=== PATIENT | female | born 1980 | race Hispanic/Latino ===

== ENCOUNTER 2018-10-12 21:55 | Observation (INO) | payer SELFPAY ==
[2018-10-12] MEDS ORDERED: Lidocaine 1% w/Epinephrine 1:100K 20 ML VIAL ONE (22:14)
[2018-10-13 01:11] VITALS: BMI 41.8
--- NOTE | 2018-10-13 02:27 | CON ---
DATE OF CONSULTATION: 10/12/2018 REASON FOR CONSULTATION: The patient was seen for evaluation of thyroid mass, transferred from [facility]. BRIEF HISTORY: A 38-year-old female with no previous medical history. She was noted to have fullness and mass in her left neck for over 2 years. She reports no swallowing problems. No voice complaints or changes. She reports having itchy, scratchy throat and some sore throat over the past 2 to 3 days. Yesterday, she felt it was hard to swallow and had some low-grade fevers. She presented to the emergency room. They did a noncontrast CT scan, which showed a large left-sided thyroid mass with substernal extension. She has never had any previous history of thyroid ultrasound. She does report having thyroid workup done in this past year with a doctor, she was unsure of the name. They only performed thyroid function tests, which were normal, but had not performed any radiologic imaging. PAST MEDICAL HISTORY: None. PAST SURGICAL HISTORY: None. SOCIAL HISTORY: Lives in [facility]. ALLERGIES: NO KNOWN DRUG ALLERGIES. MEDICATIONS: None. PHYSICAL EXAMINATION: GENERAL: The patient is resting comfortably in bed. Voice is clear. NECK: Shows fullness in the left side. There is an obvious large thyroid mass present. The laryngeal landmarks were slightly displaced to the right of midline. Oral cavity, pharynx, no trismus. Mucosa is intact. EARS: TMs intact. Middle ear is well aerated. Nasal cavity is clear. PROCEDURE: Flexible laryngoscopy was performed after topical anesthesia and decongestant placed in the nasal cavity. Nasal cavity and nasopharynx are clear. Bilateral true vocal cords are fully mobile. Pyriform sinuses, vallecula, epiglottis are all within normal limits. There is no evidence of edema. There is very mild displacement of the larynx that can hardly be appreciated to the flexible exam. CT scan of the neck without contrast shows a large left-sided thyroid goiter with substernal extension. There is some associated lymphadenopathy on this left side. This is a noncontrast study and does not show areas of abscess formation. ASSESSMENT: Left thyroid goiter with substernal extension. It is not causing any immediate airway or esophageal compression. The patient likely has a viral URI, which will certainly exacerbate the symptoms given some mild displacement of her larynx and pharynx from the large thyroid mass that she has had for over 2 years. I recommend she be admitted overnight to Medicine Service for IV antibiotics. She can be discharged tomorrow and follow up with us as an outpatient this next week, so we can discuss thyroidectomy with the patient. Job ID: [id number]
[2018-10-13] MEDS ORDERED: Ondansetron PF 4 MG/2 ML Vial SLOW IVP PRN (03:46)
[2018-10-13] MEDS ORDERED: Ondansetron PF 4 MG/2 ML Vial SLOW IVP SCH (04:00)
[2018-10-13] MEDS: Cepastat Lozenges 1 LOZ PO PRN ×5 (07:38→18:00)
[2018-10-13] MEDS: Chloraseptic Spray 180 ml Bottle PO PRN ×4 (07:39→17:59)
[2018-10-13] MEDS ORDERED: cefTRIAXone\\ROCEPHIN 1 GM in Sodium Chloride 0.9% 100 ML IVPB SCH (09:00)
[2018-10-13] MEDS: Ketorolac Tromethamine 30 MG/ML VIAL IVP SCH ×2 (11:45→18:00)
--- NOTE | 2018-10-13 13:18 | HP ---
CHIEF COMPLAINT: Sore throat and neck pain. HISTORY OF PRESENT ILLNESS: The patient is a 38-year-old female, Chadian only speaking patient, who started having some sore throat and neck pain for the last couple of days. She had some upper respiratory tract infection. She did not have any fever or chills. She denied any chest pain. She came to the emergency room in [place] and had a CT scan done, which showed some mass like lobulated fluid density collection centered within the left thyroid lobe. The patient was transferred to [facility] Emergency Room, where she was seen by Dr. Eaton, ENT, who did scoping of her airways and he recommended to admit her overnight to give her IV antibiotics PAST MEDICAL HISTORY: None. PAST SURGICAL HISTORY: None. MEDICATIONS: None. ALLERGIES: NONE. FAMILY HISTORY: Noncontributory. REVIEW OF SYSTEMS: All systems were reviewed and they are negative except for the above mentioned HPI findings and symptoms. PHYSICAL EXAMINATION: VITAL SIGNS: Blood pressure is 134/86, pulse is 88, temperature is 98.1, respiratory rate is 16, and O2 saturation is 99% on room air. HEENT: Head is atraumatic and normocephalic. Eyes are PERRLA. Sclerae are nonicteric. Oral mucosa is moist. Throat is slightly erythematous. NECK: There is a palpable mass over the left side of the neck, tender to palpation. LUNGS: Clear. HEART: S1 and S2 normal. No S3. No S4. No any murmur. ABDOMEN: Soft, nontender, and obese. Bowel sounds are present. No organomegaly. EXTREMITIES: No clubbing, cyanosis, or edema. NEUROLOGIC: She follows my commands. There is no any motor or sensory deficits present. Cranial nerves are intact. LABORATORY DATA: Labs showed white count of 14.0, hemoglobin 12.7, hematocrit 42.9, and platelet count is 239,000. Normal electrolytes. Normal creatinine. Glucose [address] of the neck showed as mentioned above, large lobulated masslike in the left thyroid lobe. Also, there was extensive degree of inflammation with associated retropharyngeal edema that ascended to the visualized paramediastinum, which favored acute suppurative thyroiditis with associated thyroid abscess. IMPRESSION AND PLAN: Left neck mass, possible acute suppurative thyroiditis with associated thyroid abscess. The patient was seen by Dr. Eaton, ENT, who wants to admit to the hospital for IV antibiotics overnight and do the followup with her on outpatient basis. We will use p.r.n. Cepastat lozenges and Ketoralac IV as needed and chloraseptic p.r.n. She should be able to go home later today, if she is fine on oral Augmentin and follow up with Dr. Eaton next week. Job ID: [id number]
[2018-10-13 15:56] VITALS: BP 113/71; TEMP 98.1
--- NOTE | 2018-10-14 05:11 | DIS ---
DATE OF ADMISSION: 10/12/2018 DATE OF DISCHARGE: 10/13/2018 FINAL DIAGNOSES: Left neck mass, most likely a thyroid goiter with retrosternal extension and recent upper respiratory tract infection, most likely viral with sore throat. CONSULTANTS: Dr. Eaton, ENT. HOSPITAL COURSE: The patient is a 38-year-old female, Latvian only speaking patient who started having some sore throat and neck pain for the last couple of days. She presented to the emergency room in [place] where a CT scan was done, which showed masslike lobulated fluid density collection centered within the left thyroid lobe. The patient was transferred to [facility] Emergency Room, where she was seen by Dr. Eaton who did the scoping of her upper airways which showed displacement of the larynx which was hardly be appreciated to the flexible exam and the scoping was negative. He recommended to admit the patient for IV antibiotics overnight, which was done. She was giving Rocephin and she is doing well. She does not need any additional treatment at this point. She had some steroids, IV Decadron prior to this hospitalization, but she did not require any other doses of that. Clinically, she is doing good. Her blood pressure is 113/71, pulse is 89, temperature is 98.1. She did not have any fever or chills during this hospitalization and even prior. She denied any fever or chills. Respirations 16, O2 saturation is 98% on room air. She is discharged home with recommendation to stay on regular diet. ACTIVITIES: As tolerated. MEDICATIONS AT THE TIME OF DISCHARGE: Augmentin 875 mg 1 tablet twice a day for 7 days. FOLLOWUP: She will follow up with Dr. Eaton in his office in 3 days. TIME SPENT: The discharge is less than 30 minutes. Job ID: [id number]
== END 2018-10-13 19:19 | disposition home or self-care (01) ==
LOC: ERS 21:55 → ERHOLD 23:06 → SURG A 10-13 00:28
PROVIDERS: ADMIT Family Medicine; ATTEND Family Medicine
DX: J02.9 Acute pharyngitis, unspecified (principal); E04.9 Nontoxic goiter, unspecified; Z79.2 Long term (current) use of antibiotics; Z79.899 Other long term (current) drug therapy
CPT/HCPCS: 94760; 96365; 96375; 96376; G0378; J0696; J1885; J2001; J7050

== ENCOUNTER 2018-10-30 08:47 | Inpatient (IN) | payer OTHER ==
[2018-10-29 10:38] VITALS: BMI 44.7
[2018-10-30] MEDS ORDERED: Bacitracin Zinc Ointment 30 gm TUBE ONE (12:01)
[2018-10-30] MEDS ORDERED: Lidocaine 1% w/Epinephrine 1:100K 20 ML VIAL ONE (12:01)
[2018-10-30] MEDS ORDERED: Fentanyl 100 MCG/2 ML VIAL ONE ×3 (12:17→17:06)
[2018-10-30] MEDS ORDERED: Famotidine/PF 20 mg/2ml Vial ONE (12:21)
[2018-10-30] MEDS ORDERED: Sodium Chloride 0.9% 100 ML ONE (12:26)
[2018-10-30] MEDS ORDERED: CEFAZOLIN 1 GM VIAL ONE (12:26)
[2018-10-30] MEDS ORDERED: HYDROmorphone 2 MG/ML VIAL ONE ×3 (12:32→17:42)
[2018-10-30] MEDS ORDERED: PROPOFOL 20 ML ONE (14:44)
[2018-10-30] MEDS ORDERED: Dexamethasone 20 MG/5 ML VIAL ONE ×2 (15:20→15:47)
[2018-10-30] MEDS ORDERED: Metoprolol Tartrate 5 MG/5 ML VIAL ONE ×2 (15:47→15:58)
[2018-10-30] MEDS ORDERED: Succinylcholine Chloride 20 MG/ML 10 ml SYRINGE FS ONE (15:47)
[2018-10-30] MEDS ORDERED: Ondansetron PF 4 MG/2 ML Vial ONE (15:47)
[2018-10-30] MEDS ORDERED: Lidocaine 1% PF 5 ML VIAL ONE (15:47)
[2018-10-30] MEDS ORDERED: PROPOFOL 200 MG/20 ML VIAL ONE (15:47)
[2018-10-30] MEDS ORDERED: Promethazine HCl 25 MG/ML VIAL SLOW IVP PRN (16:00)
[2018-10-30] MEDS ORDERED: Ondansetron HCl/PF 4 MG/2 ML Vial IVP PRN (16:00)
[2018-10-30] MEDS ORDERED: Promethazine HCl 25 MG/ML VIAL IM PRN (16:00)
[2018-10-30] MEDS ORDERED: Metoprolol Tartrate 5 MG/5 ML VIAL IVP PRN (16:01)
[2018-10-30] MEDS ORDERED: Ondansetron PF 4 MG/2 ML Vial SLOW IVP PRN (16:30)
[2018-10-30] MEDS ORDERED: hydrALAZINE 20 MG/ML VIAL ONE (16:45)
[2018-10-30] MEDS ORDERED: hydrALAZINE 20 MG/ML VIAL SLOW IVP SCH (17:00)
[2018-10-30] MEDS ORDERED: Meperidine HCl/PF 25 MG/ML VIAL ONE (17:17)
[2018-10-30] MEDS: Sodium Chloride 0.45% 1,000 ML IV SCH ×2 (20:22→23:05)
[2018-10-30] MEDS: Calcium Carbonate 500 MG TAB PO SCH (20:23)
[2018-10-30] MEDS: HYDROcodone/Acetaminophen 5/325 mg Tablet PO PRN (20:37)
[2018-10-30] MEDS ORDERED: ceFAZolin Sodium 1 GM/Dextrose 50 ML BAG IVPB SCH (21:00)
[2018-10-30] MEDS: ceFAZolin 1 GM/D5W 1 GM in Premix Bag 1 BAG IVPB SCH (21:53)
[2018-10-31] MEDS: ceFAZolin 1 GM/D5W 1 GM in Premix Bag 1 BAG IVPB SCH ×3 (04:18→20:09)
[2018-10-31] MEDS: HYDROcodone/Acetaminophen 5/325 mg Tablet PO PRN ×4 (04:21→17:32)
[2018-10-31] MEDS: Sodium Chloride 0.45% 1,000 ML IV SCH ×2 (08:42→14:49)
[2018-10-31] MEDS: Calcitriol 0.25 MCG CAP PO SCH (08:43)
[2018-10-31] MEDS: Calcium Carbonate 500 MG TAB PO SCH ×3 (08:43→20:08)
[2018-11-01] MEDS: Sodium Chloride 0.45% 1,000 ML IV SCH ×3 (00:28→16:06)
--- NOTE | 2018-11-01 01:41 | PRG ---
DATE OF SERVICE: 10/31/2018 SUBJECTIVE: Ms. Santo is postoperative total thyroidectomy secondary to thyroid cancer. The patient is doing well overall. The incision site appears to be doing well. No signs of infection. She has 2 drains placed, both right and left. Her daughter reports that she is able to swallow liquids without any problems and has been eating soft food, also without any problems. Right-sided drain was emptied this morning with 20 mL of fluid, while the left side was drained with 10 mL of fluid. OBJECTIVE: GENERAL: The patient is well developed, well nourished, in no acute distress. VITAL SIGNS: Stable, though she did have a mildly descending calcium, however, that has been treated with an infusion of calcium and magnesium and we will monitor that. HEENT: Drains are in place. There appears to be no infection. Surgical site appears to be doing well. ASSESSMENT: 1. Postop total thyroidectomy. 2. Thyroid cancer. PLAN: 1. Right drain was pulled today without difficulty with plans to pull left drain tomorrow. 2. Monitor calcium. Standing order given. If calcium drops below 8, she is to receive infusion of 2 g of calcium gluconate with 1 g of magnesium sulfate via IV piggyback and this will be a standing order and her calcium to be monitored every 12 hours. 3. Plan to pull left drain tomorrow and if all appears to be well along with stable calcium, we will plan on discharge in the morning. Job ID: [id number]
[2018-11-01] MEDS: ceFAZolin 1 GM/D5W 1 GM in Premix Bag 1 BAG IVPB SCH ×3 (04:20→20:32)
--- NOTE | 2018-11-01 09:28 | OP ---
DATE OF PROCEDURE: 10/30/2018 PREOPERATIVE DIAGNOSES: 1. Thyroid mass. 2. Dysphagia. POSTOPERATIVE DIAGNOSES: 1. Thyroid mass. 2. Dysphagia. PROCEDURE: Total thyroidectomy with intraoperative laryngeal nerve monitor. ESTIMATED BLOOD LESS: 100 mL. COMPLICATIONS: None. ANESTHESIA: GETA. DESCRIPTION OF PROCEDURE: The patient was taken to operating room, placed supine on the table. General tracheal anesthesia was taken by the anesthesia staff. The tube was secured in the midline of the upper lip. The laryngeal electrodes were confirmed to be between the vocal cords by direct laryngoscopy. Following this, the patient was prepped and draped in standard surgical fashion. Following this, a horizontal neck incision was made approximately 2 cm above the sternal notch and clavicles. Incision made through skin, subcutaneous tissue, and the platysmal muscle. Subplatysmal flaps were elevated superiorly to the level of thyroid notch and inferiorly to the level of the sternal notch. Following this, the strap muscles were identified and were in the midline. There was a large left-sided thyroid mass that was rock-hard and was causing adherence and scarring to the majority of the anterior and lateral strap muscles. Also, this mass was noted to be very adherent and sticky to the internal jugular vein and carotid artery on this left side. Careful and meticulous dissection was taken to remove this mass gently. The left recurrent laryngeal nerve was identified and was noted to be markedly atrophic and almost dark appearing as it entered the cricothyroid notch. Following this, a retroesophageal extension of this left thyroid mass was dissected and removed and the gland was removed from the body on this left side. On the right side, dissection was carried down adjacent to the right thyroid lobe. The middle thyroid vein was suture ligated. The recurrent laryngeal nerve was identified and was protected as it entered the cricothyroid area. The superior thyroid vascular pedicle was suture ligated immediately adjacent to the gland. The parathyroid glands were noted to be intact on this right side and were left in place. Following this, the gland was then removed from the body, the wound was irrigated and two drains were placed within the surgical beds. The platysmal layer was closed using Monocryl as well as the strap muscle layer and subcuticular layers. Skin was closed using Dermabond. The patient tolerated the procedure well. Job ID: [id number]
[2018-11-01] MEDS: Calcium Carbonate 500 MG TAB PO SCH ×3 (10:07→20:32)
[2018-11-01] MEDS: Calcitriol 0.25 MCG CAP PO SCH (10:07)
[2018-11-01] MEDS: HYDROcodone/Acetaminophen 5/325 mg Tablet PO PRN ×2 (10:17→20:32)
--- NOTE | 2018-11-01 21:01 | PRG ---
DATE OF SERVICE: 11/01/2018 SUBJECTIVE: Ms. Santo continues to recover from her total thyroidectomy secondary to thyroid cancer. Overall, she is doing well. She is continuing to be able to swallow liquids. Was also able to eat some eggs today without any problem. She has no complaints on the wound site. Calcium continues to run slightly below normal. Standing order for calcium and magnesium remains, but overall, she is doing better, also able to get up and ambulate to the bathroom and back. OBJECTIVE: GENERAL: The patient is well developed, well nourished. She is in no acute distress. VITAL SIGNS: Stable, though her last calcium came back as 7.54. Calcium and magnesium have been administered. She continues on her daily calcitriol and calcium carbonate as well to help keep her calcium have a good range. Left drain is still in place, but was removed today without any difficulty. The patient tolerated that procedure well. In addition, flexible scope was performed to assess swallowing and phonation, both appeared normal. ASSESSMENT: 1. Thyroid cancer. 2. Postoperative total thyroidectomy. 3. Hypocalcemia. PLAN: 1. Check calcium q.[address] Eaton. Standing order to stay if less than 8 to receive calcium and magnesium. 2. Drain removed on left side without any difficulty. 3. No discharge at this time until calcium is more stable. Job ID: [id number]
[2018-11-02] MEDS: HYDROcodone/Acetaminophen 5/325 mg Tablet PO PRN ×3 (05:19→20:15)
[2018-11-02] MEDS: ceFAZolin 1 GM/D5W 1 GM in Premix Bag 1 BAG IVPB SCH ×3 (05:20→20:15)
[2018-11-02] MEDS: Sodium Chloride 0.45% 1,000 ML IV SCH ×3 (05:22→16:53)
[2018-11-02 08:25] LABS: #Basophils 0.1 thou/uL (0.0-0.2); #Eosinphils 0.2 thou/uL (0.0-0.7); #Lymphocytes 2.7 thou/uL (1.20-3.40); #Monocytes 0.5 thou/uL (0.11-0.59); #Neutrophils 6.6 thou/uL (1.40-6.50); %Basophils 0.7 % (0.0-1.0); %Eosinophils 2.2 % (0.0-10.0); %Lymphocytes 26.5 % (21.0-51.0); %Monocytes 5.2 % (0.0-10.0); %Neutrophils 65.3 % (42.0-75.0); Hemoglobin 10.7 g/dL (12.0-16.0); Mean Corpuscular Hemoglobin 25.7 pg (27.0-31.0); Mean Corpuscular Volume 82.9 fL (78.0-98.0); Mean Platelet Volume 10.6 fL (7.4-10.4); Platelet Count 220 thou/uL (130-400); RBC Distribution Width 19.5 % (11.5-14.5); Red Blood Cell (RBC) Count 4.16 mill/uL (4.20-5.40); White Blood Cell (WBC) Count 10.1 thou/uL (4.8-10.8)
[2018-11-02 08:52] LABS: ALT (SGPT) 9 U/L (8-55); AST (SGOT) 13 U/L (5-34); Albumin 3.4 g/dL (3.5-5.0); Alkaline Phosphatase 89 U/L (40-150); Anion Gap 13 mmol/L (10-20); BUN (Urea Nitrogen) 5 mg/dL (7.0-18.7); Bilirubin, Total 0.2 mg/dL (0.2-1.2); Calc. Creatinine Clearance 200 mL/min (70-130); Calcium 7.9 mg/dL (7.8-10.44); Carbon Dioxide 23 mmol/L (22-29); Chloride 107 mmol/L (98-107); Estimated GFR-MDRD Greater than 90; Globulin 3.5 g/dL (2.4-3.5); Glucose 91 mg/dL (70-105); Magnesium 1.9 mg/dL (1.6-2.6); Phosphorus 4.4 mg/dL (2.3-4.7); Potassium 3.7 mmol/L (3.5-5.1); Protein, Total 6.9 g/dL (6.0-8.3); Sodium 139 mmol/L (136-145)
[2018-11-02] MEDS: Calcitriol 0.25 MCG CAP PO SCH (09:22)
[2018-11-02] MEDS: Calcium Carbonate 500 MG TAB PO SCH ×3 (09:23→20:15)
--- NOTE | 2018-11-02 10:11 | PDOC.PN ---
- Subjective Encounter Start Date: 11/02/18 Encounter Start Time: 08:20 -: old records requested/rev Patient seen and examined. No new complaints. No overnight events - Objective MAR Reviewed: Yes Vital Signs & Weight: Vital Signs (12 hours) Temp Pulse Resp BP Pulse Ox 11/02/18 08:00 97.4 F L 77 15 112/75 98 11/02/18 04:00 98.4 F 82 16 127/83 96 11/02/18 00:00 98 F 76 16 120/83 98 Weight Weight 229 lb I&O: 11/01/18 11/02/18 11/03/18 06:59 06:59 06:59 Intake Total 3870 4505 Output Total 55 5 Balance 3815 4500 Result Diagrams: 11/02/18 08:10 11/02/18 08:09 Phys Exam - Physical Examination Constitutional: NAD HEENT: PERRLA, moist MMs, sclera anicteric Neck: no JVD, supple surgical site clean Respiratory: no wheezing, no rales, no rhonchi Cardiovascular: RRR, no significant murmur, no rub Gastrointestinal: soft, non-tender, no distention, positive bowel sounds Musculoskeletal: no edema, pulses present Neurological: non-focal, normal sensation, moves all 4 limbs Lymphatic: no nodes Psychiatric: normal affect, A&O x 3 Skin: no rash, normal turgor Dx/Plan (1) Hypocalcemia Code(s): E83.51 - HYPOCALCEMIA Status: Acute (2) S/P total thyroidectomy Code(s): E89.0 - POSTPROCEDURAL HYPOTHYROIDISM Status: Acute (3) Thyroid mass Code(s): E07.9 - DISORDER OF THYROID, UNSPECIFIED Status: Acute (4) Morbid obesity with BMI of 40.0-44.9, adult Code(s): E66.01 - MORBID (SEVERE) OBESITY DUE TO EXCESS CALORIES; Z68.41 - BODY MASS INDEX (BMI) 40.0-44.9, ADULT Status: Chronic - Plan cont current plan of care, plan discussed w/ family * continue current medical treatment * symptomatic treatment * monitor calcium and replace as needed. Review of Systems - Review of Systems ENT: negative: Ear Pain, Ear Discharge, Nose Pain, Nose Discharge, Nose Congestion, Mouth Pain, Mouth Swelling, Throat Pain, Throat Swelling, Other Respiratory: negative: Cough, Dry, Shortness of Breath, Hemoptysis, SOB with Excertion, Pleuritic Pain, Sputum, Wheezing Cardiovascular: negative: chest pain, palpitations, orthopnea, paroxysmal nocturnal dyspnea, edema, light headedness, other Gastrointestinal: negative: Nausea, Vomiting, Abdominal Pain, Diarrhea, Constipation, Melena, Hematochezia, Other Genitourinary: negative: Dysuria, Frequency, Incontinence, Hematuria, Retention , Other Musculoskeletal: negative: Neck Pain, Shoulder Pain, Arm Pain, Back Pain, Hand Pain, Leg Pain, Foot Pain, Other - Medications/Allergies Allergies/Adverse Reactions: Allergies Allergy/AdvReac Type Severity Reaction Status Date / Time No Known Allergies Allergy Verified 10/29/18 10:38 Medications: Current Medications Hydrocodone Bitart/Acetaminophen ([place] 5/325) 1 tab PO Q4H PRN PRN Reason: Pain Last Admin: 11/02/18 05:19 Dose: 1 tab Calcitriol (Rocaltrol) 1 mcg PO DAILY [facility] Last Admin: 11/02/18 09:22 Dose: 1 mcg Calcium Carbonate (Oscal-500) 1,000 mg PO TID [facility] Last Admin: 11/02/18 09:23 Dose: 1,000 mg Sodium Chloride (1/2 Normal Saline) 1,000 mls @ 125 mls/hr IV .Q8H [facility] Last Admin: 11/02/18 09:24 Dose: 1,000 mls Cefazolin Sodium/Dextrose 1 gm (/ Device) 50 mls @ 100 mls/hr IVPB 0500,1300, 2100 [facility] Last Admin: 11/02/18 05:20 Dose: 50 mls Calcium Gluconate 2,000 mg/ (Sodium Chloride) 120 mls @ 120 mls/hr IVPB ONE PRN PRN Reason: CALCIUM <8 Stop: 11/05/18 12:02 Last Admin: 11/02/18 09:22 Dose: 120 mls Magnesium Sulfate 1 gm/ Sodium (Chloride) 102 mls @ 204 mls/hr IVPB ONE PRN PRN Reason: CALCIUM < 8 Stop: 11/05/18 12:03 Last Admin: 11/02/18 09:23 Dose: 102 mls Ondansetron HCl (Zofran) 4 mg SLOW IVP Q8H PRN PRN Reason: Nausea/Vomiting Sodium Chloride (Flush - Normal Saline) 10 ml IVF Q12HR [facility] Last Admin: 11/02/18 09:23 Dose: 10 ml Sodium Chloride (Flush - Normal Saline) 10 ml IVF PRN PRN PRN Reason: Saline Flush
[2018-11-03] MEDS: Sodium Chloride 0.45% 1,000 ML IV SCH ×3 (00:12→18:14)
[2018-11-03] MEDS: ceFAZolin 1 GM/D5W 1 GM in Premix Bag 1 BAG IVPB SCH ×3 (05:59→20:59)
[2018-11-03] MEDS: HYDROcodone/Acetaminophen 5/325 mg Tablet PO PRN ×3 (06:01→21:01)
[2018-11-03] MEDS: Calcitriol 0.25 MCG CAP PO SCH (09:44)
[2018-11-03] MEDS: Calcium Carbonate 500 MG TAB PO SCH ×4 (09:47→20:58)
--- NOTE | 2018-11-03 09:48 | PDOC.PN ---
- Subjective Encounter Start Date: 11/03/18 Encounter Start Time: 08:20 Patient seen and examined. No new complaints. No overnight events - Objective MAR Reviewed: Yes Vital Signs & Weight: Vital Signs (12 hours) Temp Pulse Resp BP Pulse Ox 11/03/18 07:25 97.9 F 71 16 114/78 96 11/03/18 04:00 98.1 F 80 16 122/83 98 11/03/18 00:34 98.1 F 75 16 126/81 98 Weight Weight 229 lb I&O: 11/02/18 11/03/18 11/04/18 06:59 06:59 06:59 Intake Total 4505 4070 Output Total 5 Balance 4500 4070 Result Diagrams: 11/02/18 08:10 11/02/18 08:09 Phys Exam - Physical Examination Constitutional: NAD HEENT: PERRLA, moist MMs, sclera anicteric Neck: no JVD, supple Respiratory: no wheezing, no rales, no rhonchi Cardiovascular: RRR, no significant murmur, no rub Gastrointestinal: soft, non-tender, no distention, positive bowel sounds Musculoskeletal: no edema, pulses present Neurological: non-focal, normal sensation, moves all 4 limbs Lymphatic: no nodes Psychiatric: normal affect, A&O x 3 Skin: no rash, normal turgor Dx/Plan (1) Hypocalcemia Code(s): E83.51 - HYPOCALCEMIA Status: Acute (2) S/P total thyroidectomy Code(s): E89.0 - POSTPROCEDURAL HYPOTHYROIDISM Status: Acute (3) Thyroid mass Code(s): E07.9 - DISORDER OF THYROID, UNSPECIFIED Status: Acute (4) Morbid obesity with BMI of 40.0-44.9, adult Code(s): E66.01 - MORBID (SEVERE) OBESITY DUE TO EXCESS CALORIES; Z68.41 - BODY MASS INDEX (BMI) 40.0-44.9, ADULT Status: Chronic - Plan cont current plan of care, plan discussed w/ family * surgical site clean * replace calcium * continue current medical treatment * symptomatic treatment. Review of Systems - Review of Systems ENT: negative: Ear Pain, Ear Discharge, Nose Pain, Nose Discharge, Nose Congestion, Mouth Pain, Mouth Swelling, Throat Pain, Throat Swelling, Other Respiratory: negative: Cough, Dry, Shortness of Breath, Hemoptysis, SOB with Excertion, Pleuritic Pain, Sputum, Wheezing Cardiovascular: negative: chest pain, palpitations, orthopnea, paroxysmal nocturnal dyspnea, edema, light headedness, other Gastrointestinal: negative: Nausea, Vomiting, Abdominal Pain, Diarrhea, Constipation, Melena, Hematochezia, Other Genitourinary: negative: Dysuria, Frequency, Incontinence, Hematuria, Retention , Other Musculoskeletal: negative: Neck Pain, Shoulder Pain, Arm Pain, Back Pain, Hand Pain, Leg Pain, Foot Pain, Other - Medications/Allergies Allergies/Adverse Reactions: Allergies Allergy/AdvReac Type Severity Reaction Status Date / Time No Known Allergies Allergy Verified 10/29/18 10:38 Medications: Current Medications Hydrocodone Bitart/Acetaminophen ([place] 5/325) 1 tab PO Q4H PRN PRN Reason: Pain Last Admin: 11/03/18 06:01 Dose: 1 tab Calcitriol (Rocaltrol) 1 mcg PO DAILY [facility] Last Admin: 11/03/18 09:44 Dose: 1 mcg Calcium Carbonate (Oscal-500) 1,000 mg PO TID [facility] Last Admin: 11/03/18 09:47 Dose: 1,000 mg Sodium Chloride (1/2 Normal Saline) 1,000 mls @ 125 mls/hr IV .Q8H [facility] Last Admin: 11/03/18 00:12 Dose: 1,000 mls Cefazolin Sodium/Dextrose 1 gm (/ Device) 50 mls @ 100 mls/hr IVPB 0500,1300, 2100 [facility] Last Admin: 11/03/18 05:59 Dose: 50 mls Calcium Gluconate 2,000 mg/ (Sodium Chloride) 120 mls @ 120 mls/hr IVPB ONE PRN PRN Reason: CALCIUM <8 Stop: 11/05/18 12:02 Last Admin: 11/03/18 07:00 Dose: 120 mls Magnesium Sulfate 1 gm/ Sodium (Chloride) 102 mls @ 204 mls/hr IVPB ONE PRN PRN Reason: CALCIUM < 8 Stop: 11/05/18 12:03 Last Admin: 11/03/18 07:00 Dose: 102 mls Ondansetron HCl (Zofran) 4 mg SLOW IVP Q8H PRN PRN Reason: Nausea/Vomiting Sodium Chloride (Flush - Normal Saline) 10 ml IVF Q12HR [facility] Last Admin: 11/02/18 20:15 Dose: 10 ml Sodium Chloride (Flush - Normal Saline) 10 ml IVF PRN PRN PRN Reason: Saline Flush
[2018-11-04] MEDS: ceFAZolin 1 GM/D5W 1 GM in Premix Bag 1 BAG IVPB SCH ×3 (05:24→20:09)
[2018-11-04] MEDS: Sodium Chloride 0.45% 1,000 ML IV SCH ×4 (05:26→23:29)
[2018-11-04] MEDS: Calcium Carbonate 500 MG TAB PO SCH ×4 (07:59→20:09)
[2018-11-04] MEDS: Calcitriol 0.25 MCG CAP PO SCH (07:59)
--- NOTE | 2018-11-04 10:10 | PDOC.PN ---
- Subjective Encounter Start Date: 11/04/18 Encounter Start Time: 08:10 Patient seen and examined. No new complaints. No overnight events - Objective MAR Reviewed: Yes Vital Signs & Weight: Vital Signs (12 hours) Temp Pulse Resp BP Pulse Ox 11/04/18 08:01 99 11/04/18 07:22 97.9 F 77 16 117/78 99 11/04/18 04:00 98.1 F 76 16 126/81 99 11/04/18 00:00 98 F 78 77 H 113/77 16 L Weight Weight 229 lb I&O: 11/03/18 11/04/18 11/05/18 06:59 06:59 06:59 Intake Total 4070 2930 Balance 4070 2930 Result Diagrams: 11/02/18 08:10 11/02/18 08:09 Phys Exam - Physical Examination Constitutional: NAD HEENT: PERRLA, moist MMs, sclera anicteric Neck: no JVD, supple Respiratory: no wheezing, no rales, no rhonchi Cardiovascular: RRR, no significant murmur, no rub Gastrointestinal: soft, non-tender, no distention, positive bowel sounds Musculoskeletal: no edema, pulses present Neurological: non-focal, normal sensation Lymphatic: no nodes Psychiatric: normal affect, A&O x 3 Skin: no rash, normal turgor Dx/Plan (1) Hypocalcemia Code(s): E83.51 - HYPOCALCEMIA Status: Acute (2) S/P total thyroidectomy Code(s): E89.0 - POSTPROCEDURAL HYPOTHYROIDISM Status: Acute (3) Thyroid mass Code(s): E07.9 - DISORDER OF THYROID, UNSPECIFIED Status: Acute (4) Morbid obesity with BMI of 40.0-44.9, adult Code(s): E66.01 - MORBID (SEVERE) OBESITY DUE TO EXCESS CALORIES; Z68.41 - BODY MASS INDEX (BMI) 40.0-44.9, ADULT Status: Chronic - Plan cont current plan of care * medication reviewed as below * symptomatic treatment * discharge per primary team. Review of Systems - Review of Systems ENT: negative: Ear Pain, Ear Discharge, Nose Pain, Nose Discharge, Nose Congestion, Mouth Pain, Mouth Swelling, Throat Pain, Throat Swelling, Other Respiratory: negative: Cough, Dry, Shortness of Breath, Hemoptysis, SOB with Excertion, Pleuritic Pain, Sputum, Wheezing Cardiovascular: negative: chest pain, palpitations, orthopnea, paroxysmal nocturnal dyspnea, edema, light headedness, other Gastrointestinal: negative: Nausea, Vomiting, Abdominal Pain, Diarrhea, Constipation, Melena, Hematochezia, Other Genitourinary: negative: Dysuria, Frequency, Incontinence, Hematuria, Retention , Other Musculoskeletal: negative: Neck Pain, Shoulder Pain, Arm Pain, Back Pain, Hand Pain, Leg Pain, Foot Pain, Other - Medications/Allergies Allergies/Adverse Reactions: Allergies Allergy/AdvReac Type Severity Reaction Status Date / Time No Known Allergies Allergy Verified 10/29/18 10:38 Medications: Current Medications Hydrocodone Bitart/Acetaminophen ([place] 5/325) 1 tab PO Q4H PRN PRN Reason: Pain Last Admin: 11/03/18 21:01 Dose: 1 tab Calcitriol (Rocaltrol) 1 mcg PO DAILY [facility] Last Admin: 11/04/18 07:59 Dose: 1 mcg Calcium Carbonate (Oscal-500) 1,000 mg PO QID [facility] Last Admin: 11/04/18 07:59 Dose: 1,000 mg Sodium Chloride (1/2 Normal Saline) 1,000 mls @ 125 mls/hr IV .Q8H [facility] Last Admin: 11/04/18 07:54 Dose: 1,000 mls Cefazolin Sodium/Dextrose 1 gm (/ Device) 50 mls @ 100 mls/hr IVPB 0500,1300, 2100 [facility] Last Admin: 11/04/18 05:24 Dose: 50 mls Calcium Gluconate 2,000 mg/ (Sodium Chloride) 120 mls @ 120 mls/hr IVPB ONE PRN PRN Reason: CALCIUM <8 Stop: 11/05/18 12:02 Last Admin: 11/04/18 07:55 Dose: 120 mls Magnesium Sulfate 1 gm/ Sodium (Chloride) 102 mls @ 204 mls/hr IVPB ONE PRN PRN Reason: CALCIUM < 8 Stop: 11/05/18 12:03 Last Admin: 11/04/18 07:55 Dose: 102 mls Ondansetron HCl (Zofran) 4 mg SLOW IVP Q8H PRN PRN Reason: Nausea/Vomiting Sodium Chloride (Flush - Normal Saline) 10 ml IVF Q12HR [facility] Last Admin: 11/04/18 08:01 Dose: Not Given Sodium Chloride (Flush - Normal Saline) 10 ml IVF PRN PRN PRN Reason: Saline Flush
--- NOTE | 2018-11-04 20:09 | CON ---
DATE OF CONSULTATION: SUBJECTIVE: Continuing to follow Ms. Kojo Santo post total thyroidectomy secondary to thyroid cancer. Calciums have continued to remain low despite infusions with calcium and magnesium. However, overall, she states that she is feeling well. She is swallowing. She is eating normal. The wound site is healing well. She has no complaints. OBJECTIVE: GENERAL: The patient is well developed, well nourished, in no acute distress. VITAL SIGNS: Stable. Calcium continues to fluctuate more in the low range and last calcium taken at 6:00 a.m. this morning was 7.5 with a low normal being 7.9. The wound site is healing normally. There is no sign of infection. ASSESSMENT: 1. Postop total thyroidectomy. 2. Thyroid cancer. 3. Hypocalcemia. PLAN: 1. At this time, we will continue monitoring her calciums every 6 hours. We are increasing her Rocaltrol from 1 mcg to 2 mcg orally and we will continue to give calcium and magnesium via IV if calcium is below 8.0. 2. Once calcium appears to be stabilized, we hope to proceed with discharge. Job ID: [id number]
[2018-11-05] MEDS: ceFAZolin 1 GM/D5W 1 GM in Premix Bag 1 BAG IVPB SCH (06:05)
[2018-11-05] MEDS: Calcium Carbonate 500 MG TAB PO SCH ×4 (08:36→20:43)
[2018-11-05] MEDS: Calcitriol 0.25 MCG CAP PO SCH (08:37)
[2018-11-05] MEDS: HYDROcodone/Acetaminophen 5/325 mg Tablet PO PRN ×2 (08:37→17:45)
[2018-11-05] MEDS: Sodium Chloride 0.45% 1,000 ML IV SCH ×2 (08:42→16:41)
--- NOTE | 2018-11-05 10:48 | PDOC.PN ---
- Subjective Encounter Start Date: 11/05/18 Encounter Start Time: 08:40 Patient seen and examined. No new complaints. No overnight events - Objective MAR Reviewed: Yes Vital Signs & Weight: Vital Signs (12 hours) Temp Pulse Resp BP Pulse Ox 11/05/18 08:16 98.3 F 83 18 113/76 97 11/05/18 04:26 97.9 F 74 16 113/73 98 11/05/18 00:00 98.4 F 87 16 100/63 96 Weight Weight 229 lb I&O: 11/04/18 11/05/18 11/06/18 06:59 06:59 06:59 Intake Total 2930 1650 Balance 2930 1650 Result Diagrams: 11/02/18 08:10 11/02/18 08:09 Phys Exam - Physical Examination Constitutional: NAD HEENT: PERRLA, moist MMs, sclera anicteric Neck: no JVD, supple Respiratory: no wheezing, no rales, no rhonchi Cardiovascular: RRR, no significant murmur, no rub Gastrointestinal: soft, non-tender, no distention, positive bowel sounds Musculoskeletal: no edema, pulses present Neurological: non-focal, normal sensation Lymphatic: no nodes Psychiatric: normal affect, A&O x 3 Skin: no rash, normal turgor Dx/Plan (1) Hypocalcemia Code(s): E83.51 - HYPOCALCEMIA Status: Acute (2) S/P total thyroidectomy Code(s): E89.0 - POSTPROCEDURAL HYPOTHYROIDISM Status: Acute (3) Thyroid mass Code(s): E07.9 - DISORDER OF THYROID, UNSPECIFIED Status: Acute Comment: pathology report c/w papillary thyroid cancer with high risk features (4) Morbid obesity with BMI of 40.0-44.9, adult Code(s): E66.01 - MORBID (SEVERE) OBESITY DUE TO EXCESS CALORIES; Z68.41 - BODY MASS INDEX (BMI) 40.0-44.9, ADULT Status: Chronic - Plan cont current plan of care * replace calcium * further plan based on oncology and ENT after discharge * medication reviewed as below * symptomatic treatment. Review of Systems - Review of Systems ENT: negative: Ear Pain, Ear Discharge, Nose Pain, Nose Discharge, Nose Congestion, Mouth Pain, Mouth Swelling, Throat Pain, Throat Swelling, Other Respiratory: negative: Cough, Dry, Shortness of Breath, Hemoptysis, SOB with Excertion, Pleuritic Pain, Sputum, Wheezing Cardiovascular: negative: chest pain, palpitations, orthopnea, paroxysmal nocturnal dyspnea, edema, light headedness, other Gastrointestinal: negative: Nausea, Vomiting, Abdominal Pain, Diarrhea, Constipation, Melena, Hematochezia, Other Genitourinary: negative: Dysuria, Frequency, Incontinence, Hematuria, Retention , Other Musculoskeletal: negative: Neck Pain, Shoulder Pain, Arm Pain, Back Pain, Hand Pain, Leg Pain, Foot Pain, Other Skin: negative: Rash, Lesions, Omar, Bruising, Other - Medications/Allergies Allergies/Adverse Reactions: Allergies Allergy/AdvReac Type Severity Reaction Status Date / Time No Known Allergies Allergy Verified 10/29/18 10:38 Medications: Current Medications Hydrocodone Bitart/Acetaminophen ([place] 5/325) 1 tab PO Q4H PRN PRN Reason: Pain Last Admin: 11/05/18 08:37 Dose: 1 tab Calcitriol (Rocaltrol) 2 mcg PO DAILY [facility] Last Admin: 11/05/18 08:37 Dose: 2 mcg Calcium Carbonate (Oscal-500) 1,000 mg PO QID [facility] Last Admin: 11/05/18 08:36 Dose: 1,000 mg Sodium Chloride (1/2 Normal Saline) 1,000 mls @ 125 mls/hr IV .Q8H [facility] Last Admin: 11/05/18 08:42 Dose: Not Given Calcium Gluconate 2,000 mg/ (Sodium Chloride) 120 mls @ 120 mls/hr IVPB ONE PRN PRN Reason: CALCIUM <8 Stop: 11/05/18 12:02 Last Admin: 11/05/18 08:38 Dose: 120 mls Magnesium Sulfate 1 gm/ Sodium (Chloride) 102 mls @ 204 mls/hr IVPB ONE PRN PRN Reason: CALCIUM < 8 Stop: 11/05/18 12:03 Last Admin: 11/05/18 07:41 Dose: 102 mls Ondansetron HCl (Zofran) 4 mg SLOW IVP Q8H PRN PRN Reason: Nausea/Vomiting Sodium Chloride (Flush - Normal Saline) 10 ml IVF Q12HR [facility] Last Admin: 11/05/18 08:42 Dose: Not Given Sodium Chloride (Flush - Normal Saline) 10 ml IVF PRN PRN PRN Reason: Saline Flush
[2018-11-06] MEDS: Sodium Chloride 0.45% 1,000 ML IV SCH ×3 (03:02→16:52)
[2018-11-06] MEDS: Calcium Carbonate 500 MG TAB PO SCH ×4 (07:52→20:23)
[2018-11-06] MEDS: Calcitriol 0.25 MCG CAP PO SCH (07:53)
--- NOTE | 2018-11-06 10:23 | PRG ---
DATE OF SERVICE: SUBJECTIVE: Overall, the patient is doing well. She continues to recover from her total thyroidectomy. She is up, she is moving around. She is eating normally. She is not having any problems with her surgical site. There is no sign of infection; however, calcium continues to dip below normal levels, therefore she is continuing to get IV calcium and magnesium. OBJECTIVE: The patient is well developed, well nourished, in no acute distress. Her vital signs are normal. Again, however, calcium continues to drop below the desired 8.0. Last visit, Rocaltrol was increased to 2 mcg. No other changes at this time. ASSESSMENT: 1. Postop total thyroidectomy. 2. Thyroid cancer. 3. Hypocalcemia. PLAN: Continue with current plan of monitoring calciums every 6 hours and replacing with IV calcium and magnesium as needed. Job ID: [id number]
--- NOTE | 2018-11-06 12:11 | PRG ---
DATE OF SERVICE: 11/06/2018 SUBJECTIVE: The patient was seen and examined at the bedside. She looks good. She does not have much complaints to offer. She wants to go home. OBJECTIVE: VITAL SIGNS: Blood pressure is 101/68, pulse is 86, temperature is 98.3, respiratory rate is 14, and O2 saturation is 96% on room air. HEENT: Her head is atraumatic and normocephalic. Eyes are PERRLA. Sclerae are nonicteric. Oral mucosa is moist. NECK: Incision looks good, it is healing properly. LUNGS: Clear. HEART: S1 and S2 are normal. ABDOMEN: Soft, obese, nontender, and nondistended. EXTREMITIES: No clubbing, cyanosis, or edema. NEUROLOGIC: She is alert and oriented x4. There is no any sensory deficits. LABORATORY DATA: Labs showed calciums 7.5 at 4:00 this morning and at midnight 8.1. IMPRESSION: 1. Status post thyroidectomy, total, for thyroid cancer. 2. Hypocalcemia, most likely secondary to surgically induced hypoparathyroidism. 3. Papillary thyroid cancer with high-risk features. 4. Morbid obesity. PLAN: Plan is to start her on magnesium small dose orally to prevent those fluctuations of calcium. We will continue p.r.n. IV calcium and oral, and vitamin D oral supplementation. She is able to eat without any problems. She is able to ambulate, and as soon as her calcium is controlled, she can be discharged home. Job ID: [id number]
[2018-11-06 12:53] LABS: Calcium 8.2 mg/dL (7.8-10.44); Magnesium 2.1 mg/dL (1.6-2.6)
[2018-11-06] MEDS: Magnesium Oxide 250 MG TAB PO SCH (20:22)
[2018-11-07] MEDS: Sodium Chloride 0.45% 1,000 ML IV SCH ×2 (00:14→12:48)
[2018-11-07] MEDS: Magnesium Oxide 250 MG TAB PO SCH (09:14)
[2018-11-07] MEDS: Calcium Carbonate 500 MG TAB PO SCH ×2 (09:14→13:10)
[2018-11-07] MEDS: Calcitriol 0.25 MCG CAP PO SCH (09:50)
[2018-11-07 11:53] VITALS: BP 118/79; TEMP 98.3
--- NOTE | 2018-11-07 13:38 | PRG ---
DATE OF SERVICE: 11/07/2018 SUBJECTIVE: The patient is seen and examined at the bedside. She is feeling good. She does not have much complaints to offer. She is able to eat her meal without major problems. OBJECTIVE: VITAL SIGNS: Blood pressure is 118/79, pulse is 99, temperature is 98.3, respiratory rate is 18, O2 saturation is 98% on room air. HEENT: Head is atraumatic and normocephalic. Eyes are PERRLA. Sclerae are nonicteric. Oral mucosa is moist. NECK: The incision looks good. There is no swelling or redness. LUNGS: Clear. HEART: S1, S2 normal. No S3. No S4. No any murmur. ABDOMEN: Soft, nontender. Bowel sounds are present. No organomegaly. EXTREMITIES: No clubbing, cyanosis, or edema. NEUROLOGICAL: Examination is intact. LABORATORY DATA: Showed calcium ranging from 8.2 to 9.2, magnesium 2.1. IMPRESSION: 1. Status post thyroidectomy, total for thyroid cancer. 2. Hypocalcemia, resolved. 3. Surgically-induced hypoparathyroidism. 4. Papillary thyroid cancer with high risk features. 5. Morbid obesity. PLAN: The patient is ready to be discharged on calcium, vitamin D, and magnesium and she will follow up with her ENT doctor for further management. Job ID: [id number]
--- NOTE | 2018-11-07 21:12 | CON ---
DATE OF CONSULTATION: SUBJECTIVE: The patient is doing much better, calcium appears to be stabilized. Surgical site continues to heal well. No new complaints. OBJECTIVE: GENERAL: The patient is well-developed, well-nourished, in no acute distress. VITAL SIGNS: Stable. Calcium is stable. She has had 4 consecutive reading above 8. She has not received IV calcium or magnesium in that same period of time. Operative site is clean. No sign of infection. The patient eating and drinking normally. ASSESSMENT: 1. Postoperative total thyroidectomy. 2. Thyroid cancer. 3. Hypocalcemia, improving. PLAN: 1. Okay to discharge per [facility]. 2. Medicine to prescribe all appropriate medications concerning the hypocalcemia. 3. The patient to follow up with Ear, Nose and Throat, Dr. Eaton in 1 week. Job ID: [id number]
== END 2018-11-07 13:35 | disposition home or self-care (01) | DRG 626 ==
LOC: SDC 08:47 → SURG A 16:29
PROVIDERS: ADMIT Otolaryngology Plastic Surgery within the Head & Neck; ATTEND Otolaryngology Plastic Surgery within the Head & Neck
PROC: 0GTK0ZZ Resection of Thyroid Gland, Open Approach (ICD-10-PCS; principal; 2018-10-30)
DX: C73 Malignant neoplasm of thyroid gland (principal); Z68.41 Body mass index [BMI] 40.0-44.9, adult; E83.51 Hypocalcemia; E66.01 Morbid (severe) obesity due to excess calories; E89.2 Postprocedural hypoparathyroidism
CPT/HCPCS: 36415; 82310; 83735; 84100; 85025; 88307; 88313; 88341; 88342; J0131; J0360; J0610; J0690; J1100; J1170; J2001; J2175; J2405; J2704; J3010; J3475; J3490; S0028

== ENCOUNTER 2019-03-11 14:06 | Inpatient (IN) | payer SELFPAY ==
[2019-03-11] MEDS ORDERED: Magnesium 2 GM/50 ML BAG (IN WATER) ONE (14:58)
[2019-03-11] MEDS ORDERED: Meclizine HCl 25 MG TAB PO PRN (17:36)
[2019-03-11] MEDS ORDERED: Senokot S 8.6-50 MG TAB PO PRN (17:37)
[2019-03-11] MEDS ORDERED: Acetaminophen 325 MG TAB PO PRN (17:37)
[2019-03-11] MEDS ORDERED: Ondansetron PF 4 MG/2 ML Vial IVP PRN (17:37)
[2019-03-11] MEDS ORDERED: Bisacodyl 10 MG SUPP PR PRN (17:37)
[2019-03-11] MEDS ORDERED: Ondansetron ODT 4 MG TAB PO PRN (17:37)
[2019-03-11] MEDS: Calcium Carbonate 500 MG ChewTAB PO SCH ×2 (18:01→21:33)
[2019-03-11] MEDS: Dextrose 5 %-0.45 % NaCl 1,000 ML IV SCH (18:01)
--- NOTE | 2019-03-11 19:23 | HP ---
PRIMARY CARE: [facility]. CHIEF COMPLAINT: Generalized weakness. HISTORY OF PRESENT ILLNESS: The patient is a 39-year-old female with total thyroidectomy earlier this year, presented to the emergency room with above complaints. Over the last 1 to 2 weeks, the patient has been feeling generally weak and fatigue. She also had intermittent chest pressure. She also had generalized cramping. She has been compliant with calcium supplementation. Calcitriol was discontinued per ENT recommendation. She takes 1200 mg of calcium carbonate on a daily basis. She also had some nausea without vomiting. She had some exertional dyspnea as well. She denies recent immobilization, travel, or injuries. In the emergency room, her calcium was 4.4 with a CK of 2427. She received calcium gluconate at [facility] and was transferred to this facility for hospital admission. After IV calcium supplementation, her symptoms have partially improved. PAST MEDICAL HISTORY: 1. Total thyroidectomy earlier this year for thyroid cancer. 2. Chronic hypocalcemia. PAST SURGICAL HISTORY: 1. Total thyroidectomy in October of 2018. 2. section. ALLERGIES: NO KNOWN DRUG ALLERGIES. CURRENT HOME MEDICATION: 1. Meclizine as needed. 2. Tylenol as needed. 3. Os-Ramon D 600 mg b.i.d. 4. Vitamin B12 of 500 mcg daily. 5. Ferrous sulfate 325 mg daily. 6. Lasix 20 mg daily. 7. Levothyroxine 75 mcg daily. SOCIAL HISTORY: The patient currently lives at home with her family. She denies tobacco, alcohol, or drug use. FAMILY HISTORY: Negative for heart disease. REVIEW OF SYSTEMS: All other review of systems was reviewed and was found negative. PHYSICAL EXAMINATION: VITAL SIGNS: The patient is afebrile with respirations of 22, pulse 103, blood pressure 120/79, O2 saturation 96% on room air. GENERAL: A 39-year-old female, in no apparent distress. HEENT: Head, atraumatic and normocephalic. Sclerae anicteric. Moist mucous membrane. No oral lesion. NECK: Supple. No JVD appreciated. No carotid bruit. LUNGS: Clear to auscultation bilaterally. No wheezing, rales, or rhonchi. HEART: S1 and S2 present. Regular rate and rhythm. No murmurs, rubs, or gallops appreciated. ABDOMEN: Soft, nontender. Bowel sounds present. EXTREMITIES: No edema or calf tenderness. NEUROLOGIC: Grossly nonfocal. Moves all 4 extremities. PSYCHIATRY: Alert, awake, and oriented x3. SKIN: Warm and dry. LYMPH NODES: No palpable lymph nodes in the neck. PERIPHERAL VASCULAR: Radial pulses palpable bilaterally. MUSCULOSKELETAL: No joint swelling or tenderness. LABORATORY FINDINGS: EKG by my review showed prolonged QT with sinus rhythm. Hemoglobin 10.9, hematocrit 34. Calcium 4.4 with phosphorus 6.2, magnesium 1.6. CK 2427. Troponin was negative. IMAGING STUDIES: Chest x-ray by my review was negative for infiltrate. IMPRESSION: 1. Acute on chronic symptomatic hypocalcemia. 2. History of total thyroidectomy. 3. Vitamin D deficiency. Vitamin D this admission was 28.9. 4. Hypomagnesemia. 5. Hyperphosphatemia secondary to hypoparathyroidism. 6. Rhabdomyolysis probably secondary to electrolyte abnormalities. 7. Chronic anemia. 8. Metabolic acidosis. 9. Chronic kidney disease, stage 2. 10. Morbid obesity with a BMI of 40.9. 11. History of thyroid cancer. PLAN: The patient will be monitored on the telemetry unit. She received a total of 3 g of calcium gluconate in the emergency room. We will start her on oral calcium carbonate 1000 mg q.i.d. with calcitriol 1 mcg daily. IV hydration for rhabdomyolysis. Recheck labs in a.m. We will also check TSH. DVT prophylaxis with SCDs. Telemetry monitoring due to prolonged QT. Plan of care was discussed with the patient and the family in detail, they stated understanding. Job ID: [id number]
[2019-03-11] MEDS: Calcitriol 0.25 MCG CAP PO SCH (21:32)
[2019-03-12 05:48] LABS: Albumin 3.6 g/dL (3.5-5.0); Anion Gap 17 mmol/L (10-20); BUN (Urea Nitrogen) 8 mg/dL (7.0-18.7); BUN/Creatinine Ratio 10.39; CK (CPK) 1737 U/L (29-168); Calc. Creatinine Clearance 169 mL/min (70-130); Carbon Dioxide 22 mmol/L (22-29); Chloride 106 mmol/L (98-107); Estimated GFR-MDRD 84; Glucose 134 mg/dL (70-105); Phosphorus 7.1 mg/dL (2.3-4.7); Potassium 3.7 mmol/L (3.5-5.1); Sodium 141 mmol/L (136-145)
[2019-03-12 05:51] LABS: Calcium 4.9 mg/dL (7.8-10.44)
[2019-03-12] MEDS ORDERED: Levothyroxine Sodium 75 MCG TAB PO SCH (06:00)
[2019-03-12] MEDS: Dextrose 5 %-0.45 % NaCl 1,000 ML IV SCH ×2 (06:09→16:19)
[2019-03-12] MEDS ORDERED: SODIUM CHLORIDE 0.9% IVPB SCH (08:15)
[2019-03-12] MEDS ORDERED: CALCIUM GLUCONATE IVPB SCH (08:15)
[2019-03-12] MEDS: Calcium Carbonate 500 MG ChewTAB PO SCH ×4 (09:17→21:35)
[2019-03-12] MEDS: Calcitriol 0.25 MCG CAP PO SCH ×2 (09:17→21:35)
[2019-03-12 12:32] VITALS: BMI 40.9
--- NOTE | 2019-03-12 14:40 | PDOC.HOSPP ---
- Subjective Encounter Date: 03/12/19 Encounter Time: 10:30 Subjective: Patient seen and examined for Gen weakness and hypocalcemia. Feels somewhat better. No new complaints. - Objective Vital Signs & Weight: Vital Signs (12 hours) Temp Pulse Resp BP Pulse Ox 03/12/19 07:58 97.4 F L 84 17 116/66 97 03/12/19 04:00 98.1 F 83 16 93/57 L 97 Weight Admit Weight 238 lb Weight 238 lb 11.2 oz I&O: 03/11/19 03/12/19 03/13/19 06:59 06:59 06:59 Intake Total 1350 Balance 1350 Result Diagrams: 03/12/19 05:02 EKG Reviewed by me: Yes (Tele SR) Hospitalist ROS - Review of Systems Respiratory: denies: cough, dry, shortness of breath, hemoptysis, SOB with excertion, pleuritic pain, sputum, wheezing, other Cardiovascular: denies: chest pain, palpitations, orthopnea, paroxysmal noc. dyspnea, edema, light headedness, other - Medication Medications: Active Medications Generic Name Dose Route Start Last Admin Trade Name Freq PRN Reason Stop Dose Admin Calcitriol 0.5 mcg 03/11/19 21:00 03/12/19 09:17 Rocaltrol PO 0.5 mcg BID LIZZIE Administration Calcium Carbonate 1,000 mg 03/11/19 17:00 03/12/19 12:54 Tums PO 1,000 mg QID LIZZIE Administration Dextrose/Sodium Chloride 1,000 mls @ 100 mls/hr 03/11/19 15:15 03/12/19 06:09 D5 1/2 Ns IV 1,000 mls .Q10H LIZZIE Administration - Exam General Appearance: NAD ENT: normocephalic atraumatic Neck: supple, no JVD Heart: RRR, no murmur, no gallops, no rubs Respiratory: CTAB, no wheezes, no rales, no ronchi, normal chest expansion Gastrointestinal: soft, non-tender, normal bowel sounds Extremities: no edema Neurological: no new deficit Psychiatric: normal affect, A&O x 3 Hosp A/P - Plan IMPRESSION: 1. Acute on chronic symptomatic hypocalcemia. 2. History of total thyroidectomy. 3. Vitamin D deficiency. 4. Hypomagnesemia. 5. Hyperphosphatemia secondary to hypoparathyroidism. 6. Rhabdomyolysis probably secondary to electrolyte abnormalities/hypothyroidism 7. Chronic anemia. 8. Metabolic acidosis. 9. Chronic kidney disease, stage 2. 10. Morbid obesity with a BMI of 40.9. 11. History of thyroid cancer. PLAN: 3 g of calcium gluconate IV over 3 hr Cont Vit D supplementation Cont PO Calcium carbonate Increase Levothyroxine dose due to elevated TSH AM labs Consult Nephrology for assistance with Calcium replacement Laboratory Tests 03/11/19 03/12/19 03/12/19 15:14 05:02 05:02 Calcium 4.9 L* Creatine Kinase 1737 H 25-OH Vitamin D Total 28.9 L TSH 3rd Generation 37.2707 H
--- NOTE | 2019-03-13 | CON ---
DATE OF CONSULTATION: HISTORY OF PRESENT ILLNESS: Ms. Santo is a 39-year-old white female, who was admitted for generalized malaise with carpopedal spasm due to low calcium. She was given IV calcium gluconate as well, started back on Calcitriol and calcium carbonate replacement. Of interest, this patient recently had thyroidectomy with parathyroidectomy. For unclear reason, the calcitriol was discontinued. We are now seeing the patient for further evaluation of this chronic hypocalcemia-iatrogenic. REVIEW OF SYSTEMS: No chest pain. No spasm. No numbness. No diarrhea. No constipation. No headache. No diplopia. No syncopal episode. No productive cough. No gross hematuria. No dysuria. No urinary frequency. MEDICATIONS: Currently on, 1. Calcitriol 0.5 mcg p.o. b.i.d. 2. Dulcolax 10 mg p.r.n. 3. Calcium carbonate 1000 mg p.o. q.i.d., status post IV calcium. 4. Levothyroxine 100 mcg daily. 5. Meclizine 25 mg q.8. 6. Zofran p.r.n. PAST MEDICAL HISTORY: 1. History of thyroid cancer, currently on remission. 2. Chronic hypocalcemia. 3. Hypothyroidism secondary to thyroidectomy. PAST SURGICAL HISTORY: Status post thyroidectomy with parathyroidectomy, status post section. SOCIAL HISTORY: The patient is , lives in [place] with six children. No smoking. Alcohol rarely. Education 6th grade. 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 No IV drug abuse. Sedentary lifestyle. ALLERGIES: NONE. TRAUMA: None. IMMUNIZATION: Unknown. HOSPITALIZATION: Please see past medical history. FAMILY HISTORY: No family history of ESRD. PHYSICAL EXAMINATION: VITAL SIGNS: Blood pressure 116/66, heart rate 84, respiratory rate 17, temperature 97.4, pulse ox 97%. GENERAL: Noted to be awake, alert, comfortable, not in distress. Obese. SKIN: Adequate turgor. HEENT: Pinkish conjunctivae. Anicteric sclerae. No neck mass. No carotid bruits. No JVD. CHEST: No deformities. LUNGS: Clear breath sounds. HEART: Normal sinus rhythm. No murmur. No gallops. No rubs. ABDOMEN: Globular, soft, nontender. No masses. EXTREMITIES: No edema. No deformities. NEUROLOGICAL: Moving all extremities. No tremors or asterixis. No ataxia. LABORATORY DATA: Laboratories on March 11, 2019. White count 10.3, hemoglobin 10.9. Sodium 139, potassium 3.6, chloride 102, carbon dioxide 21, BUN 8, creatinine 0.81, glucose 158, calcium is 4.4, magnesium 1.6, CK 2427, albumin 4.1. Troponin less than 0.010. March 11, 2019, chest x-ray normal. ASSESSMENT AND PLAN: 1. Chronic hypocalcemia-secondary from previous parathyroidectomy. Agree with current management. Continue calcitriol 0.5 mcg tablet b.i.d. Continue calcium carbonate 1000 mg p.o. q.i.d. We can adjust this medication depending on our calcium response. Overall, agree with current management. 2. Thyroid cancer in remission, status post thyroidectomy. Currently, on Synthroid. 3. Recheck basic metabolic in a.m. Job ID: [id number]
[2019-03-13] MEDS: Levothyroxine Sodium 100 MCG TAB PO SCH (05:53)
[2019-03-13] MEDS: Dextrose 5 %-0.45 % NaCl 1,000 ML IV SCH ×2 (05:54→11:22)
[2019-03-13 06:40] LABS: Albumin 3.7 g/dL (3.5-5.0); Anion Gap 18 mmol/L (10-20); BUN (Urea Nitrogen) 9 mg/dL (7.0-18.7); BUN/Creatinine Ratio 12.16; CK (CPK) 1397 U/L (29-168); Calc. Creatinine Clearance 173 mL/min (70-130); Carbon Dioxide 21 mmol/L (22-29); Chloride 105 mmol/L (98-107); Estimated GFR-MDRD 88; Glucose 131 mg/dL (70-105); Phosphorus 6.7 mg/dL (2.3-4.7); Potassium 3.7 mmol/L (3.5-5.1); Sodium 140 mmol/L (136-145)
[2019-03-13] MEDS: Calcium Carbonate 500 MG ChewTAB PO SCH ×4 (08:33→19:54)
[2019-03-13] MEDS: Calcitriol 0.25 MCG CAP PO SCH ×2 (08:33→19:54)
--- NOTE | 2019-03-13 09:58 | PRG ---
DATE OF SERVICE: 03/13/2019 SUBJECTIVE: Ms. Kojo Santo is a 39-year-old female, who was seen for her chronic hypocalcemia-secondary to a parathyroidectomy. Her serum calcium compared to yesterday is much improved from a value of 4.9 to a most recent value of 6.0. She voices no new complaints. She denies any numbness or tingling sensation. Denies any chest pain or shortness of breath. OBJECTIVE: VITAL SIGNS: Blood pressure 104/62, heart rate 80, respiratory rate 17, temperature 98, and pulse ox 98%. GENERAL: Noted to be awake, alert, ambulatory, comfortable, not in distress. SKIN: Adequate turgor. HEENT: Pinkish conjunctivae. Anicteric sclerae. NECK: No neck mass. No carotid bruits. No JVD. LUNGS: Clear breath sounds. No wheezing. No crackles. HEART: Normal sinus rhythm. No murmur. No gallops or rubs. ABDOMEN: Globular, soft, nontender. No masses. EXTREMITIES: No edema. No deformities. MEDICATIONS: Medications of March 13, 2019, were reviewed. LABORATORY DATA: Laboratories of March 13, 2019; sodium 140, potassium 3.7, chloride 105, carbon dioxide 21, BUN 9, creatinine 0.74, glucose 131, calcium 6.0, phosphorus 6.7. CK 1397. TSH 37. ASSESSMENT AND PLAN: 1. Hypocalcemia, clinically much improved. Serum calcium has also gone up from 4.8 to 6.0. I will continue current dose of calcitriol at 0.5 twice a day. Continue calcium carbonate 1000 mg four times a day. She remains asymptomatic. Continue current management. No indication for any IV calcium today. Agree with current management. 2. Mild hyperphosphatemia-consider giving the calcium carbonate with meals. 3. Overall agree with current management. Recheck basic metabolic in a.m. Job ID: [id number]
--- NOTE | 2019-03-13 11:28 | PDOC.HOSPP ---
- Subjective Encounter Date: 03/13/19 Encounter Time: 09:00 Subjective: Patient seen and examined for Hypocalcemia/Rhabdo. Feels better. No N/V. No new complaints. No overnight events - Objective Vital Signs & Weight: Vital Signs (12 hours) Temp Pulse Resp BP Pulse Ox 03/13/19 07:47 98.0 F 80 17 104/62 98 Weight Admit Weight 238 lb Weight 234 lb I&O: 03/12/19 03/13/19 03/14/19 06:59 06:59 06:59 Intake Total 1350 1235 Balance 1350 1235 Result Diagrams: 03/13/19 05:59 Additional Labs: Laboratory Tests 03/12/19 03/13/19 05:02 05:59 Calcium 6.0 L Phosphorus 6.7 H Creatine Kinase 1397 H TSH 3rd Generation 37.2707 H EKG Reviewed by me: Yes (Tele SR) Hospitalist ROS - Review of Systems Respiratory: denies: cough, dry, shortness of breath, hemoptysis, SOB with excertion, pleuritic pain, sputum, wheezing, other Cardiovascular: denies: chest pain, palpitations, orthopnea, paroxysmal noc. dyspnea, edema, light headedness, other Gastrointestinal: denies: nausea, vomitting, abdominal pain, diarrhea, constipation, melena, hematochezia, other - Medication Medications: Active Medications Generic Name Dose Route Start Last Admin Trade Name Freq PRN Reason Stop Dose Admin Acetaminophen 650 mg 03/11/19 17:37 03/12/19 21:35 Tylenol PO 650 mg Q4H PRN Administration Headache/Fever/Mild Pain (1-3) Calcitriol 0.5 mcg 03/11/19 21:00 03/13/19 08:33 Rocaltrol PO 0.5 mcg BID LIZZIE Administration Calcium Carbonate 1,000 mg 03/11/19 17:00 03/13/19 08:33 Tums PO 1,000 mg QID LIZZIE Administration Dextrose/Sodium Chloride 1,000 mls @ 100 mls/hr 03/11/19 15:15 03/13/19 05:54 D5 1/2 Ns IV 1,000 mls .Q10H LIZZIE Administration Levothyroxine Sodium 100 mcg 03/13/19 06:00 03/13/19 05:53 Synthroid PO 100 mcg 0600 LIZZIE Administration - Exam General Appearance: NAD Heart: RRR, no gallops Respiratory: CTAB, no wheezes, no ronchi Gastrointestinal: soft, non-tender, non-distended, normal bowel sounds Extremities: no edema Neurological: no new deficit Hosp A/P - Plan IMPRESSION: 1. Acute on chronic symptomatic hypocalcemia. 2. /Hypothyroidism with abn TSH 3. Vitamin D deficiency. 4. Hypomagnesemia. 5. Hyperphosphatemia secondary to hypoparathyroidism. 6. Rhabdomyolysis. CK improving 7. Chronic anemia. 8. Metabolic acidosis. 9. Chronic kidney disease, stage 2. 10. Morbid obesity with a BMI of 40.9. 11. History of thyroid cancer s/p total thyroidectomy PLAN: Cont Vit D supplementation Cont PO Calcium carbonate 1 g QID Cont Levothyroxine AM labs No need for IV Calcium today
[2019-03-14] MEDS: Dextrose 5 %-0.45 % NaCl 1,000 ML IV SCH ×4 (05:36→16:33)
[2019-03-14] MEDS: Levothyroxine Sodium 100 MCG TAB PO SCH (05:36)
[2019-03-14 07:02] LABS: Anion Gap 13 mmol/L (10-20); BUN (Urea Nitrogen) 7 mg/dL (7.0-18.7); CK (CPK) 1178 U/L (29-168); Calc. Creatinine Clearance 174 mL/min (70-130); Carbon Dioxide 28 mmol/L (22-29); Chloride 102 mmol/L (98-107); Estimated GFR-MDRD 88; Glucose 128 mg/dL (70-105); Potassium 3.6 mmol/L (3.5-5.1); Sodium 139 mmol/L (136-145)
[2019-03-14 07:12] LABS: Calcium 5.7 mg/dL (7.8-10.44)
[2019-03-14] MEDS ORDERED: CALCIUM GLUCONATE IVPB SCH (07:15)
[2019-03-14] MEDS ORDERED: SODIUM CHLORIDE 0.9% IVPB SCH (07:15)
[2019-03-14] MEDS: Calcitriol 0.25 MCG CAP PO SCH ×2 (08:07→20:58)
[2019-03-14] MEDS: Calcium Carbonate 500 MG ChewTAB PO SCH ×4 (08:08→17:28)
--- NOTE | 2019-03-14 09:47 | PRG ---
DATE OF SERVICE: 03/14/2019 SUBJECTIVE: Ms. Kojo Santo is a 39-year-old female, who is status post thyroidectomy, status parathyroidectomy, and now with chronic hypocalcemia. She is clinically asymptomatic with a low calcium. It is much improved from previous value of 4.9 to a most recent value of 5.7. No other complaints. No chest pain. No paresthesias. No spasm. No nausea. No vomiting. OBJECTIVE: VITAL SIGNS: Blood pressure is 117/77, heart rate 77, respiratory rate 15, temperature 98.1, and pulse ox 96%. GENERAL: Noted to be awake, alert, comfortable, not in distress. SKIN: Adequate turgor. HEENT: She has pinkish conjunctivae. Anicteric sclerae. NECK: No neck mass. No carotid bruits. No JVD. CHEST: No deformities. LUNGS: Clear breath sounds. No wheezing. No crackles. HEART: Normal sinus rhythm. No murmurs, gallops, or rubs. ABDOMEN: Globular. Soft and nontender. No masses. EXTREMITIES: No edema. No deformities. MEDICATIONS: Medications of March 14, 2019, were reviewed. LABORATORY DATA: Laboratories of March 14, 2019; sodium 139, potassium 3.6, chloride 102, carbon dioxide 28, BUN 7, creatinine 0.74, glucose 128, and calcium is 5.7. CK is 1178. ASSESSMENT AND PLAN: 1. Chronic hypocalcemia-we will adjust the calcium tablets. I would suggest we do it as 2000 mg of calcium carbonate to be taken with meals 3 times a day. 2. Hyperphosphatemia. As previously mentioned, the calcium carbonates to be taken with meals. 3. Continue also Calcitriol the current dose. From a renal point of view, this patient can be discharged and she can follow up with her original surgeon, who did a parathyroidectomy. Job ID: [id number]
--- NOTE | 2019-03-14 11:14 | PDOC.HOSPP ---
- Subjective Encounter Date: 03/14/19 Encounter Time: 07:30 Subjective: Patient seen and examined for hypocalcemia/Rhabdo. No CP or SOB. No new complaints. No overnight events - Objective Vital Signs & Weight: Vital Signs (12 hours) Temp Pulse Resp BP Pulse Ox 03/14/19 08:00 98.1 F 77 15 117/77 96 Weight Admit Weight 238 lb Weight 235 lb 9.6 oz I&O: 03/13/19 03/14/19 03/15/19 06:59 06:59 06:59 Intake Total 1235 1635 Balance 1235 1635 Result Diagrams: 03/14/19 06:08 Additional Labs: Laboratory Tests 03/14/19 06:08 Calcium 5.7 L* Creatine Kinase 1178 H EKG Reviewed by me: Yes (Tele SR) Hospitalist ROS - Review of Systems Respiratory: denies: cough, dry, shortness of breath, hemoptysis, SOB with excertion, pleuritic pain, sputum, wheezing, other Cardiovascular: denies: chest pain, palpitations, orthopnea, paroxysmal noc. dyspnea, edema, light headedness, other Gastrointestinal: denies: nausea, vomitting, abdominal pain, diarrhea, constipation, melena, hematochezia, other - Medication Medications: Active Medications Generic Name Dose Route Start Last Admin Trade Name Freq PRN Reason Stop Dose Admin Acetaminophen 650 mg 03/11/19 17:37 03/12/19 21:35 Tylenol PO 650 mg Q4H PRN Administration Headache/Fever/Mild Pain (1-3) Calcitriol 0.5 mcg 03/11/19 21:00 03/14/19 08:07 Rocaltrol PO 0.5 mcg BID LIZZIE Administration Calcium Carbonate 2,000 mg 03/14/19 09:00 03/14/19 10:05 Tums PO 2,000 mg QID LIZZIE Administration Dextrose/Sodium Chloride 1,000 mls @ 75 mls/hr 03/14/19 07:16 03/14/19 08:08 D5 1/2 Ns IV 1,000 mls .[id number] LIZZIE Administration Levothyroxine Sodium 100 mcg 03/13/19 06:00 03/14/19 05:36 Synthroid PO 100 mcg 0600 LIZZIE Administration - Exam General Appearance: NAD Neck: supple, no JVD Heart: RRR, no gallops Respiratory: CTAB, no wheezes, no rales, no ronchi Gastrointestinal: soft, non-tender, non-distended, normal bowel sounds Extremities: no edema Neurological: no new deficit Hosp A/P - Plan IMPRESSION: 1. Acute on chronic symptomatic hypocalcemia. Ca 5.7 today 2. Hypothyroidism with abn TSH 3. Vitamin D deficiency. 4. Hypomagnesemia. 5. Hyperphosphatemia secondary to hypoparathyroidism. 6. Rhabdomyolysis. CK improving 7. Chronic anemia. 8. Metabolic acidosis. 9. Chronic kidney disease, stage 2. 10. Morbid obesity with a BMI of 40.9. 11. History of thyroid cancer s/p total thyroidectomy PLAN: 3 amps of IV Calcium gluconate Cont Vit D supplementation Cont PO Calcium carbonate 1 g QID Cont Levothyroxine and other meds as below AM labs
[2019-03-14 19:59] VITALS: TEMP 98.6
[2019-03-15] MEDS: Levothyroxine Sodium 100 MCG TAB PO SCH (05:16)
[2019-03-15 06:15] LABS: Anion Gap 15 mmol/L (10-20); BUN (Urea Nitrogen) 8 mg/dL (7.0-18.7); Calc. Creatinine Clearance 169 mL/min (70-130); Calcium 6.5 mg/dL (7.8-10.44); Carbon Dioxide 26 mmol/L (22-29); Chloride 102 mmol/L (98-107); Estimated GFR-MDRD 85; Glucose 112 mg/dL (70-105); Potassium 3.9 mmol/L (3.5-5.1); Sodium 139 mmol/L (136-145)
[2019-03-15 08:36] VITALS: BP 108/62
[2019-03-15] MEDS: Calcium Carbonate 500 MG ChewTAB PO SCH ×2 (08:39→13:23)
[2019-03-15] MEDS: Calcitriol 0.25 MCG CAP PO SCH (08:39)
--- NOTE | 2019-03-15 10:36 | PRG ---
DATE OF SERVICE: 03/15/2019 SUBJECTIVE: Ms. Santo is a 39-year-old female who was admitted for symptomatic hypocalcemia. Adjustment of her medications was done. Serum calcium is improving and her symptom is much improved. OBJECTIVE: VITAL SIGNS: Blood pressure is 108/62, heart rate 76, respiratory rate 18, temperature 98.6, and pulse oximetry 94%. GENERAL: Noted to be awake, alert, comfortable, and not in overt distress. SKIN: Adequate turgor. HEENT: She has pinkish conjunctivae. Anicteric sclerae. NECK: No neck mass. No carotid bruits. No JVD. CHEST: No deformities. LUNGS: Clear breath sounds. No wheezing. No crackles. HEART: Normal sinus rhythm. No murmur. No gallops. No rubs. ABDOMEN: Globular, soft, and nontender. No masses. EXTREMITIES: No edema, no deformities. MEDICATIONS: Medications of March 15, 2019, were reviewed. LABORATORY DATA: Laboratories of March 15, 2019. Sodium 139, potassium 3.9, chloride 102, carbon dioxide 26, BUN 8, creatinine 0.76, and calcium 6.5. ASSESSMENT AND PLAN: Symptomatic hypocalcemia - this is secondary from her parathyroidectomy. Continue current management. Calcium is improving. Continue current dose of Tums and calcitriol. From a renal point of view, this patient can be discharged. She will [facility] up [facility] and/or from her surgeon. Job ID: [id number]
--- NOTE | 2019-03-16 02:08 | EKG ---
Test Reason : Blood Pressure : / mmHG Vent. Rate : 080 BPM Atrial Rate : 080 BPM P-R Int : 150 ms QRS Dur : 080 ms QT Int : 600 ms P-R-T Axes : 052 024 029 degrees QTc Int : 692 ms Normal sinus rhythm T wave abnormality, consider anterior ischemia Prolonged QT T wave inversion V1-V4 Abnormal ECG Confirmed by CHRISTA REINA DO ([id number]), photographic editor ERIC GARCIA ([id number]) on 03/16/2019 2:08:05 AM Referred By: Confirmed By:CHRISTA REINA DO
--- NOTE | 2019-03-16 09:38 | DIS ---
DATE OF ADMISSION: 03/11/2019 DATE OF DISCHARGE: 03/15/2019 DISCHARGE DISPOSITION: Home. FOLLOWUP: Follow up with primary care physician at [facility] in 1 week. Follow up with Nephrology, Dr. Lee in 1 to 2 weeks. Repeat CK and basic metabolic profile after 1 week is recommended. Primary care physician advised to follow. The patient was seen and examined on the day of discharge. Denies any new complaints. No chest pain, shortness of breath or palpitations. DIAGNOSTIC IMPRESSION: Significant labs; calcium on the day of discharge is 6.5, on admission was 4.4. CK on admission was 2427, repeat was 1178. TSH was 37.2. Vitamin D was 28.9. DISCHARGE MEDICATION: 1. Calcitriol 0.5 mcg b.i.d. 2. Tums 2000 mg 3 times daily with meals. 3. Levothyroxine dose was increased to 88 mcg daily. All other home medications were left unchanged. BRIEF HOSPITAL COURSE: The patient is a 39-year-old female with recent total thyroidectomy, presented to the hospital with generalized weakness. Her workup was consistent with symptomatic hypocalcemia with low vitamin D. She was started on IV calcium gluconate with vitamin D supplementation. She was monitored on telemetry unit for close monitoring. Calcium has gradually improved to 6.5 after several doses of oral as well as IV calcium. She also had mild rhabdomyolysis that improved as well. She was found to have low TSH, for which levothyroxine dose was increased to 88 mcg. She was also evaluated by Nephrology, Dr. Lee. She has been cleared by Nephrology for discharge. FINAL DIAGNOSES: 1. Acute on chronic symptomatic hypocalcemia. 2. Hypothyroidism with abnormal TSH. Levothyroxine dose was increased. 3. Vitamin D deficiency. 4. Hypomagnesemia, replaced. 5. Hyperphosphatemia secondary to primary hypoparathyroidism. 6. Rhabdomyolysis probably secondary to electrolyte abnormalities as well as hypothyroidism. 7. Chronic anemia. 8. Metabolic acidosis. 9. Chronic kidney disease, stage 2. 10. Morbid obesity with a BMI of 40.9. 11. History of thyroid cancer status post total thyroidectomy. 12. The patient was extensively counseled on high calcium diet. TIME SPENT WITH PATIENT: Total time coordinating the discharge of this patient was 34 minutes. Job ID: [id number]
== END 2019-03-15 15:33 | disposition home or self-care (01) | DRG 641 ==
LOC: ERS 14:06 → 2NO 14:55
PROVIDERS: ADMIT Internal Medicine; ATTEND Internal Medicine
DX: E83.51 Hypocalcemia (principal); M62.82 Rhabdomyolysis; E87.2 Acidosis; Z68.41 Body mass index [BMI] 40.0-44.9, adult; N25.81 Secondary hyperparathyroidism of renal origin; E66.01 Morbid (severe) obesity due to excess calories; E03.9 Hypothyroidism, unspecified; N18.2 Chronic kidney disease, stage 2 (mild); D63.1 Anemia in chronic kidney disease; Z85.850 Personal history of malignant neoplasm of thyroid
CPT/HCPCS: 36415; 80048; 80069; 82306; 82550; 83735; 84443; 93005; 96361; 96365; J3475; J3490

== ENCOUNTER 2019-06-03 18:18 | Observation (INO) | payer OTHER, SELFPAY ==
[2019-06-03] MEDS ORDERED: Calcium Gluconate 9.2 MEQ, Admixture Fee 1 EACH in Sodium Chloride 0.9% 100 ML IVPB SCH (19:00)
[2019-06-03 19:28] LABS: ALT (SGPT) 19 U/L (8-55); AST (SGOT) 26 U/L (5-34); Albumin 3.9 g/dL (3.5-5.0); Alkaline Phosphatase 93 U/L (40-110); Anion Gap 15 mmol/L (10-20); BUN (Urea Nitrogen) 8 mg/dL (7.0-18.7); Bilirubin, Total 0.3 mg/dL (0.2-1.2); Calc. Creatinine Clearance 0 mL/min (70-130); Carbon Dioxide 27 mmol/L (22-29); Chloride 100 mmol/L (98-107); Estimated GFR-MDRD 85; Glucose 92 mg/dL (70-105); Potassium 3.9 mmol/L (3.5-5.1); Protein, Total 7.9 g/dL (6.0-8.3); Sodium 138 mmol/L (136-145)
[2019-06-03 19:31] LABS: Calcium 5.7 mg/dL (7.8-10.44)
[2019-06-03] MEDS ORDERED: Acetaminophen 325 MG TAB PO PRN (22:10)
[2019-06-03 23:51] VITALS: BMI 42.2
[2019-06-04] MEDS ORDERED: Senokot S 8.6-50 MG TAB PO PRN (01:33)
[2019-06-04] MEDS ORDERED: Calcium Carbonate 500 MG ChewTAB PO PRN (01:33)
[2019-06-04] MEDS ORDERED: Bisacodyl 10 MG SUPP PR PRN (01:33)
[2019-06-04] MEDS ORDERED: Meclizine HCl 25 MG TAB PO PRN (01:45)
[2019-06-04] MEDS ORDERED: Calcitriol 0.25 MCG CAP PO SCH ×2 (02:00→09:00)
--- NOTE | 2019-06-04 02:00 | HP ---
Patient was seen and examined on June 03, 2019. PRIMARY CARE: [facility]. CHIEF COMPLAINT: Generalized weakness. HISTORY OF PRESENT ILLNESS: Patient is a 39-year-old female, with a total thyroidectomy earlier this year for thyroid cancer, presented to the hospital with generalized weakness, fatigue, along with cramping. She was admitted earlier this year for hypocalcemia. She was discharged home on calcitriol 0.5 mcg twice a day along with Tums 2000 mg 3 times daily with meals. Levothyroxine dose was also increased to 88 mcg at that time. She states that levothyroxine dose was recently increased. She is compliant with Tums 2000 mg 3 times a day with meals. However, she takes calcitriol only on a daily basis. Over the last 1 week or so, patient has generalized muscle cramping along with aches. She denies any aggravating or relieving factor. She had loose stool, however, denies any vomiting or nausea. She also had mild generalized headache with arthralgias. She denies any focal neurologic deficit. No fever or chills reported. No chest pain or palpitations reported. In the emergency room at [place], her calcium was 4.7 with albumin of 4.2. She received a total of 4 g calcium gluconate in the emergency room and was transferred to this facility for hospital admission. She received another 2 g calcium gluconate at this facility. Symptomatically, she feels much better. PAST MEDICAL HISTORY: 1. She had a total thyroidectomy earlier this year for thyroid cancer. 2. Chronic hypocalcemia. PAST SURGICAL HISTORY: 1. section. 2. Total thyroidectomy in October. ALLERGIES: NO KNOWN DRUG ALLERGIES. CURRENT HOME MEDICATION: 1. Levothyroxine 137 mcg daily. 2. Calcitriol 0.5 daily. Patient was advised to take twice a day. 3. Meclizine 25 mg as needed for vertigo. 4. Tylenol as needed. 5. Tums 2000 mg 3 times daily. SOCIAL HISTORY: Patient currently lives at home with her family. No current use of tobacco, alcohol, or drug use. FAMILY HISTORY: Negative for heart disease. REVIEW OF SYSTEMS: All other review of systems was reviewed and was found negative. PHYSICAL EXAMINATION: VITAL SIGNS: Showed temperature 98.5, respirations 16, pulse of 99, blood pressure 107/72, and O2 saturation 98% on room air. GENERAL: A 39-year-old female in no apparent distress. Symptomatically feels better. HEENT: Head, atraumatic and normocephalic. Sclerae anicteric. Moist mucous membranes. No oral lesion. NECK: Supple. No JVD appreciated. No carotid bruit. LUNGS: Clear to auscultation bilaterally. No wheezing, rales, or rhonchi. HEART: S1 and S2 present. Regular rate and rhythm. No rubs or gallops. ABDOMEN: Soft, nontender. Bowel sounds present. EXTREMITIES: No edema or calf tenderness. NEUROLOGIC: Grossly nonfocal. There was no reproducible muscle spasm on facial nerve stimulation. Cranial nerves 2 through 12 are normal on examination. PERIPHERAL VASCULAR: Radial pulses palpable bilaterally. PSYCHIATRY: Alert, awake, and oriented x3. LABORATORY DATA: Diagnostic tests. EKG by my review showed sinus rhythm with QT interval of 628 milliseconds. 1. WBC was 9.0 with hemoglobin 10.7. 2. Calcium 4.7, repeat calcium at this facility was 6.2. TSH was 14.1. Albumin was normal. 3. Phosphorus 6.3. Vitamin D level in March of this year was 28.9. IMAGING: Chest x-ray last admission by my review was negative for acute findings. IMPRESSION: 1. Acute on chronic symptomatic hypocalcemia. 2. Vitamin D deficiency. 3. History of total thyroidectomy. 4. Hypothyroidism secondary to thyroidectomy. 5. Hyperphosphatemia secondary to hypoparathyroidism. 6. Chronic anemia. 7. Chronic kidney disease, stage 2. 8. Morbid obesity with a body mass index of 42.2. 9. History of thyroid cancer. PLAN: Patient will be monitored in the telemetry unit due to prolonged QT. We will recheck calcium in a.m. She has received a total of 6 g calcium gluconate so far. Nephrology will be consulted. We will resume calcitriol and calcium carbonate. We will check vitamin D level in a.m. We will also check magnesium due to history of hypomagnesemia last admission. Patient was extensively counseled to take calcitriol twice a daily rather than once daily. She was also educated by the dietitian last admission on high calcium diet. Plan of care was discussed with the patient and the family at the bedside. They stated understanding. Job ID: [id number]
[2019-06-04 05:54] LABS: Albumin 3.8 g/dL (3.5-5.0); Anion Gap 11 mmol/L (10-20); BUN (Urea Nitrogen) 11 mg/dL (7.0-18.7); BUN/Creatinine Ratio 14.29; Calc. Creatinine Clearance 164 mL/min (70-130); Carbon Dioxide 29 mmol/L (22-29); Chloride 102 mmol/L (98-107); Estimated GFR-MDRD 84; Glucose 104 mg/dL (70-105); Magnesium 1.8 mg/dL (1.6-2.6); Phosphorus 7.5 mg/dL (2.3-4.7); Potassium 3.8 mmol/L (3.5-5.1); Sodium 138 mmol/L (136-145)
[2019-06-04] MEDS ORDERED: Levothyroxine Sodium 25 MCG TAB PO SCH (06:00)
[2019-06-04] MEDS ORDERED: Levothyroxine Sodium 112 MCG TAB PO SCH (06:00)
[2019-06-04] MEDS ORDERED: Levothyroxine Sodium 88 MCG TAB PO SCH (06:00)
[2019-06-04 06:11] LABS: Calcium 5.9 mg/dL (7.8-10.44)
[2019-06-04] MEDS ORDERED: Calcium Gluconate 4.6 MEQ in Sodium Chloride 0.9% 100 ML IVPB SCH (06:45)
[2019-06-04] MEDS ORDERED: Calcium Carbonate 500 MG ChewTAB PO SCH ×2 (08:00)
[2019-06-04 08:35] VITALS: BP 115/69; TEMP 98.3
[2019-06-04] MEDS ORDERED: Ferrous Sulfate 325 MG TAB PO SCH (09:00)
--- NOTE | 2019-06-04 15:17 | CON ---
DATE OF CONSULTATION: HISTORY OF PRESENT ILLNESS: Ms. Santo is a 39-year-old white female, who was admitted for generalized weakness with paresthesias. She has also history of a chronic hypocalcemia due to her iatrogenic hypoparathyroidism. She had a history of thyroid cancer and underwent thyroidectomy and inadvertent surgical removal of the parathyroid gland. Serum calcium is now slightly improved from yesterday. She is less symptomatic today. We are now being consulted for her chronic hypocalcemia. REVIEW OF SYSTEMS: Positive for generalized weakness. Positive for numbness and paresthesias. No chest pain, no shortness of breath. No gross hematuria. No dysuria. No urinary frequency. No abdominal pain. Appetite and energy level are excellent. No headache. No diplopia. No tremors. No asterixis. CURRENT MEDICATIONS: The patient is on 1. Calcitriol 0.5 mcg p.o. b.i.d. 2. Calcium carbonate 2000 mg p.o. t.i.d. 3. Lovenox 40 mg subcu daily. 4. Ferrous sulfate 325 mg once daily. 5. Levothyroxine 112 mcg tab daily plus 25 mcg tablet daily. 6. Meclizine 25 mg q.8 p.r.n. PAST MEDICAL HISTORY: 1. Chronic hypocalcemia secondary to an inadvertent parathyroidectomy. 2. History of thyroid cancer, in remission. 3. Hypothyroidism secondary to thyroidectomy. PAST SURGICAL HISTORY: Status post thyroidectomy with parathyroidectomy, status post section. SOCIAL HISTORY: The patient lives in [place], six children, education 6th grade. 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 No IV drug abuse. Sedentary lifestyle. No smoking. No alcohol. ALLERGIES: NONE. TRAUMA: None. IMMUNIZATION: Up-to-date. HOSPITALIZATIONS: Please see past medical history. FAMILY HISTORY: No family history of ESRD. PHYSICAL EXAMINATION: VITAL SIGNS: Blood pressure is 115/69, heart rate 73, respiratory rate 18, temperature 98.3, and pulse ox 97%. GENERAL: Noted to be awake, alert, comfortable, not in overt distress. SKIN: Adequate turgor. HEENT: Pinkish conjunctivae, anicteric sclerae. NECK: No neck mass. No carotid bruits. No JVD. CHEST: No deformities. LUNGS: Clear breath sounds. HEART: Normal sinus rhythm. No murmurs, gallops, or rubs. ABDOMEN: Globular, soft, nontender, no masses. EXTREMITIES: No edema. No deformities. NEUROLOGIC: Moving all extremities. No tremors. No asterixis. LABORATORY DATA: Laboratories of June 03, 2019, BUN 9, creatinine 0.76, calcium 4.7, phosphorus was 6.3. June 04, 2019, sodium 138, potassium 3.8, chloride 102, carbon dioxide 29, BUN 11, creatinine 0.77 calcium is 5.9, phosphorus 7.5, albumin is 3.8, TSH 14.1. ASSESSMENT AND PLAN: 1. Chronic hypocalcemia secondary to parathyroidectomy-improving serum calcium. She is less symptomatic at the present time. I have increased her calcium carbonate from 2000 to 3000 mg t.i.d. In addition, we have restarted her on vitamin D3 at 5000 units daily. She will continue calcitriol at 0.5 mcg tablet b.i.d. 2. Hyperphosphatemia. Consider giving her calcium carbonate t.i.d. with meals. 3. Hypothyroidism, currently on thyroid supplementation. Due to her much improved clinical presentation, we will be signing off. I did instruct the patient to follow up at the [facility] upon discharge. Job ID: [id number]
--- NOTE | 2019-06-04 19:38 | DIS ---
DATE OF ADMISSION: 06/03/2019 DATE OF DISCHARGE: 06/04/2019 REASON FOR HOSPITALIZATION: Muscle cramping and general malaise. SIGNIFICANT FINDINGS: The patient was found to have symptomatic hypocalcemia with status post thyroidectomy. PROCEDURES PERFORMED AND TREATMENTS RENDERED: The patient was admitted to medical unit with telemetry and had maximum medical therapy. The patient was seen and evaluated by Nephrology-please see full consultation and progress notes for details. The patient's medications were adjusted with improvement of her hypocalcemia and the patient was recommended safe for discharge by Nephrology. CONDITION ON DISCHARGE: Stable. SPECIFIC INSTRUCTIONS FOR THE PATIENT/FAMILY: 1. The patient is recommended to take all medications as directed-to be re- evaluated by primary care physician, Endocrinology, and Nephrology in the outpatient setting in the next 1 to 2 weeks. 2. The patient is recommended to follow up with primary care physician in the next 5 to 7 days and go over strategies on how to avoid future hospitalizations for complications of hypocalcemia status post thyroidectomy. 3. The patient is recommended to follow up with Endocrinology in the next 2 to 3 weeks. 4. The patient is recommended to follow up with Nephrology in the next 1 to 2 weeks. 5. The patient is recommended to return to acute care hospital immediately if signs or symptoms return, worsen, or any other new symptoms occur. 6. The patient is recommended to stay well hydrated and have adequate intake of fluids. DISCHARGE MEDICATIONS: Please see full discharge medication list for details. 1. Meclizine 25 mg one tablet p.o. q.8 hours p.r.n. dizziness. 2. Ferrous sulfate 325 mg one tablet p.o. daily. 3. Tylenol Extra Strength 650 mg one tablet p.o. q.8 hours p.r.n. pain or fever. 4. Levothyroxine 137 mcg one tablet p.o. daily. 5. Vitamin D3 of 5000 units one tablet p.o. daily. 6. Tums 3000 mg p.o. t.i.d. 7. Calcitriol 0.5 mcg one tablet p.o. b.i.d. Greater than 32 minutes spent coordinating care and discharge process. Job ID: [id number] [id number]
[2019-06-04] MEDS ORDERED: Enoxaparin Sodium 40 MG/0.4 ML SYRINGE SC SCH (21:00)
[2019-06-05] MEDS ORDERED: FLU VACC QS2019-20(6MOS UP)/PF 60 MCG/0.5 ML SYRINGE IM ONE (21:00)
== END 2019-06-04 11:13 | disposition home or self-care (01) ==
LOC: ERS 18:18 → 2SW 23:27
PROVIDERS: ADMIT Internal Medicine; ATTEND Internal Medicine
DX: E83.51 Hypocalcemia (principal); E89.0 Postprocedural hypothyroidism; N18.9 Chronic kidney disease, unspecified; D63.1 Anemia in chronic kidney disease; E83.39 Other disorders of phosphorus metabolism; E66.01 Morbid (severe) obesity due to excess calories; Z68.41 Body mass index [BMI] 40.0-44.9, adult; Z79.899 Other long term (current) drug therapy; Z85.850 Personal history of malignant neoplasm of thyroid
CPT/HCPCS: 36415; 80069; 83735; 96365; 96366; G0378; J3490